=== PATIENT | male | born 1985 | race Caucasian/White ===

== ENCOUNTER 2016-11-06 10:35 | Inpatient (IN) | payer MEDICARE, OTHER ==
--- NOTE | 2016-11-06 10:43 | ER Document Report ---
[id number] Information source: Patient, Emergency Med Personnel TRAVEL OUTSIDE OF THE [place] IN LAST 30 DAYS: No - HPI Onset: Just prior to arrival Severity: Severe History of substance abuse: Yes - Paramedics initial findings Blood Pressure: 117/60 Heart Rate: 125 <MAIK PATEL - Last Filed: 11/08/16 11:03> - General Stated Complaint: POSSIBLE OVERDOSE Notes: Patient is a 31-year-old male that presents to the emergency department today secondary to a heroin overdose. EMS reports the patient's girlfriend called after she found him unresponsive on the couch. EMS reports girlfriend also found him unresponsive yesterday as well but he refused medical treatment yesterday. EMS reports on arrival today the patient was unresponsive with 6-8 snoring respirations a minute, with a room oxygen saturation of 55%. EMS reports the patient was diaphoretic and pale. EMS administered 2 mg of intranasal Narcan. Patient states he "snorted a little line heroin". Patient states he did not inject any heroin and he denies any other prescription pill usage. (MAIK PATEL) - Related Data Allergies/Adverse Reactions: No Known Allergies Allergy (Verified 11/06/16 11:52) Home Medications: Current Home Medications Oxcarbazepine [Trileptal] 600 mg PO Q12 11/06/16 [History] Propranolol HCl [Inderal 10 mg Tablet] 10 mg PO Q12 11/06/16 [History] Past Medical History - General Information source: Emergency Med Personnel, [facility] Records Cannot obtain history due to: Other - Social History Smoking Status: Never Smoker Cigarette use (# per day): No Drug Abuse: Heroin, Prescription drugs Lives with: Family Family History: Arthritis, CAD, CVA, DM, Hyperlipidemia, Hypertension, Malignancy - Past Medical History Cardiac Medical History: Reports: Hx Hypertension Neurological Medical History: Reports: Hx Migraine Musculoskeltal Medical History: Reports Hx Musculoskeletal Deformity, Reports Hx Musculoskeletal Trauma Psychiatric Medical History: Reports: Hx Anxiety, Hx Bipolar Disorder, Hx Depression, Hx Obsessive Compulsive Disorder, Hx Post Traumatic Stress Disorder Traumatic Medical History: Reports: Hx Traumatic Brain Injury Past Surgical History: Reports: Hx Tonsillectomy - Immunizations Immunizations up to date: Yes Hx Diphtheria, Pertussis, Tetanus Vaccination: Yes - 2011 <MAIK PATEL - Last Filed: 11/08/16 11:03> Review of Systems - Review of Systems -: Yes ROS unobtainable due to patient's medical condition - overdose <MAIK PATEL - Last Filed: 11/08/16 11:03> Physical Exam - Vital signs Interpretation: Hypoxic - General General appearance: Other - Arousable to painful stimuli - HEENT Head: Normocephalic, Atraumatic, Other - No signs of external trauma Eyes: Normal Conjunctiva: Normal Extraocular movements intact: Yes Mucous membranes: Moist - Respiratory Respiratory status: Other - hypoxic Chest status: Nontender Breath sounds: Normal - Cardiovascular Rhythm: Tachycardia Heart sounds: Normal auscultation Murmur: No - Abdominal Inspection: Normal Distension: No distension Bowel sounds: Normal Tenderness: Nontender - Extremities General upper extremity: Normal inspection, Nontender, Normal ROM. No: Edema General lower extremity: Normal inspection, Nontender, Normal ROM. No: Edema - Neurological Neuro grossly intact: Yes Cognition: Normal Orientation: AAOx4 - Skin Skin Temperature: Warm Skin Moisture: Dry Skin Color: Normal <MAIK PATEL - Last Filed: 11/08/16 11:03> - Vital signs Vitals: Resp 24 H 11/06/16 10:35 (CHANTELL PEÑALOZA) Course - Laboratory Result Diagrams: 11/06/16 10:40 11/06/16 10:40 <CHANTELL PEÑALOZA - Last Filed: 11/06/16 13:49> - Laboratory Result Diagrams: 11/07/16 04:21 11/06/16 10:40 <AMANDAMAIK - Last Filed: 11/08/16 11:03> - Re-evaluation Re-evalutation: 11/06/16 11:37 I personally performed the services described in the documentation, reviewed and edited the documentation which was dictated to my scribe in my presence, and it accurately records my words and actions. Patient presents to the emergency department with altered mental status. n patient's girlfriend called EMS because he was unresponsive at the house. There were apparently 5 children in the house as they do not have school today. She states that yesterday he had a period of unresponsiveness but after several hours he came to and denied taking anything. She states he has a history of substance abuse but to her knowledge it hasn't been recently. Patient was slow to respond but completely woke up to 2 mg of Narcan. In the emergency department he was alert to sternal rub would fall asleep but then when wake up easily to sternal rub. States that he just started this morning heroin 2 days ago. He denies any other drugs or alcohol. Denies any history of IV drug abuse. On examination he is put on a Narcan drip still sleepy and drowsy requiring oxygen for sats in the 89 percentile range. He should also placed on IVC as this is acute threatening overdose unknown whether this is suicidal ideation but warrants a psychiatric evaluation once he is no longer under the influence of the medications that he took. 11/06/16 13:48 Patient with elevated white blood cell count of 19,016 neutrophils not hypotensive afebrile rectal temp with no obvious sources of infection. We bumped him up on the Narcan drip because he was initially D satting he has not desatted any longer on the 0.4 mg an hour of Narcan. He is satting around 93-94 % with a negative chest x-ray aroused multiple times at the bedside follows commands awake alert no nuchal rigidity no neurological deficits. We will admit to the intensive care unit close monitoring and IVC paperwork. (CHANTELL PEÑALOZA) - Vital Signs Vital signs: Temp Pulse Resp BP Pulse Ox 97.9 F 75 17 129/73 H 93 11/07/16 09:08 11/07/16 09:08 11/07/16 09:08 11/07/16 09:08 11/07/16 09:08 (CHANTELL PEÑALOZA) - Laboratory Laboratory results interpreted by me: 11/06/16 11/06/16 11/06/16 10:40 10:40 10:55 WBC 19.1 H Seg Neutrophils % 86.9 H Lymphocytes % 5.2 L Absolute Neutrophils 16.6 H Absolute Eosinophils 0.7 H Glucose 258 H Urine Protein 100 H Urine Glucose (UA) >=500 H Salicylates < 1.0 L Acetaminophen < 10 L (CHANTELL PEÑALOZA) - EKG Interpretation by Me Additional EKG results interpreted by me: 11/06/16 11:39 EKG interpreted by myself to reveal sinus tachycardia at a rate of [address] segment elevation or depression 11/06/16 13:47 (CHANTELL PEÑALOZA) Critical Care Note - Critical Care Note Total time excluding time spent on procedures (mins): 45 <CHANTELL PEÑALOZA - Last Filed: 11/06/16 13:49> Discharge - Discharge Admitting Provider: Hospitalist Unit Admitted: ICU <CHANTELL PEÑALOZA - Last Filed: 11/06/16 13:49> <MAIK PATEL - Last Filed: 11/08/16 11:03> - Discharge Clinical Impression: Overdose Qualifiers: Encounter type: initial encounter Injury intent: undetermined intent Qualified Code(s): T50.904A - Poisoning by unspecified drugs, medicaments and biological substances, undetermined, initial encounter Condition: Stable Disposition: HOME, SELF-CARE Scribe Documentation - Scribe Written by Scribe:: Amanda Packer, 11/06/16 1143 acting as scribe for :: Vincent <MAIK PATEL - Last Filed: 11/08/16 11:03>
[2016-11-06] MEDS ORDERED: NORMAL SALINE 500 ML with NALOXONE HCL 2 MG IV PRN ×4 (10:50→14:26)
[2016-11-06 10:52] LABS: ABSOLUTE EOSINOPHILS # (AUTO) 0.7 10^3/uL (0.0-0.6); ABSOLUTE MONOCYTES (AUTO) 0.8 10^3/uL (0.1-1.4); ABSOLUTE NEUT (AUTO) 16.6 10^3/uL (1.7-8.2); BASOPHILS % (AUTO) 0.2 % (0-2); EOSINOPHILS % (AUTO) 3.6 % (0-6); HEMATOCRIT 46.9 % (37.9-51.0); HEMOGLOBIN 15.5 g/dL (13.5-17.0); HGB HCT DIFFERENCE -0.4; LYMPHOCYTES % (AUTO) 5.2 % (13-45); MEAN CORPUSCULAR HEMOGLOBIN 30.1 pg (27.0-33.4); MEAN CORPUSCULAR HGB CONC 33.2 g/dL (32.0-36.0); MEAN CORPUSCULAR VOLUME 91 fl (80-97); MONOCYTES % (AUTO) 4.1 % (3-13); RED BLOOD COUNT 5.17 10^6/uL (4.35-5.55); RED CELL DISTRIBUTION WIDTH 13.8 % (11.5-14.0); SEGMENTED NEUTROPHILS % (AUTO) 86.9 % (42-78); WHITE BLOOD COUNT 19.1 10^3/uL (4.0-10.5)
[2016-11-06] MEDS ORDERED: NALOXONE HCL INJ 2 MG/2 ML DISP.SYRIN ONE (11:04)
[2016-11-06 11:15] LABS: ANION GAP 14 (5-19); BLOOD UREA NITROGEN 19 mg/dL (7-20); CALCIUM 8.9 mg/dL (8.4-10.2); CARBON DIOXIDE 24 mmol/L (22-30); CHLORIDE 100 mmol/L (98-107); CREATININE RESULT 1.07 mg/dL (0.52-1.25); GLUCOSE 258 mg/dL (75-110); POTASSIUM 3.7 mmol/L (3.6-5.0)
[2016-11-06 11:16] LABS: ALCOHOL < 10 mg/dL (NONE DETECTED)
[2016-11-06 11:31] LABS: APPEARANCE,URINE SLIGHTLY-CLOUDY; BILIRUBIN,URINE NEGATIVE (NEGATIVE); GLUCOSE, URINE >=500 mg/dL (NEGATIVE); KETONES,URINE NEGATIVE (NEGATIVE); LEUKOCYTE ESTERASE,URINE NEGATIVE (NEGATIVE); NITRITE,URINE NEGATIVE (NEGATIVE); PROTEIN,URINE 100 mg/dL (NEGATIVE); URINE SPECIFIC GRAVITY 1.017; UROBILINOGEN,URINE NEGATIVE mg/dL (<2.0)
[2016-11-06] MEDS ORDERED: ONDANSETRON HCL INJ/PF 4 MG/2 ML SDV IV ONE (11:44)
--- NOTE | 2016-11-06 11:46 | EKG REPORT ---
SEVERITY:- BORDERLINE ECG - SINUS TACHYCARDIA BORDERLINE PROLONGED QT INTERVAL : Confirmed by: Isaura Mccarthy MD 06-Nov-2016 11:45:44
[2016-11-06 12:05] LABS: URINE BARBITURATES SCREEN NEGATIVE; URINE METHADONE SCREEN NEGATIVE; URINE PHENCYCLIDINE SCREEN NEGATIVE
[2016-11-06] MEDS ORDERED: MAGNESIUM HYDROXIDE SUSP 30 ML UDCUP PO PRN (14:15)
[2016-11-06] MEDS ORDERED: IPRATROPIUM/ALBUTEROL 0.5-2.5 MG/3 ML AMPUL NEB PRN (14:15)
[2016-11-06] MEDS ORDERED: ACETAMINOPHEN 325 MG TABLET PO PRN (14:15)
[2016-11-06] MEDS ORDERED: ONDANSETRON HCL INJ/PF 4 MG/2 ML SDV IV PRN (14:20)
[2016-11-06] MEDS ORDERED: KETOROLAC TROMETHAMINE INJ/PF 30 MG/1 ML SDV IV PRN (14:27)
--- NOTE | 2016-11-06 14:42 | PDOC H&P ---
History of Present Illness Patient complains of: unarousable History of Present Illness: MABEL HOWARD is a 31 year old male presents to the emergency department from home after his girlfriend could not wake him up for more than 24 hours. She knew he had taken something but didn't know what and elected to let him try "sleep it off" when she couldn't arouse him this morning she called emergency medical services. When they arrived they found him hypoxic with O2 sats below 88%, he was given a dose of Narcan and placed on a nasal cannula and transported to the emergency department. He responded to the Narcan briefly but then quickly drifted back to sleep and would drop his O2 sats again below 88 %. He was started on a Narcan drip with good results and now maintains saturations greater than 92% on 2 L per nasal cannula and the Narcan is running at 4 mg per hour. The patient freely admits to doing several lines of heroin starting yesterday and repeating again last night. Adamantly denies chronic use. States he has chronic low back pain and when he couldn't get any relief and couldn't find any narcotic pills on the street a dealer he encountered offered him the heroin. He adamantly denies any attempt to harm himself, no suicidal or homicidal ideations. States she's never done anything like this before and has never required hospitalization for an overdose before. He seems genuinely embarrassed by the outcome and at least somewhat reticent. On further evaluation emergency department chest x-ray seems to show a right middle lobe infiltrate, the patient does have cough nonproductive of phlegm, and a leukocytosis all suggestive of possible aspiration pneumonia. We were asked to admit the patient for further evaluation and management. A reflex IVC was started by the emergency department physician, she claims this is her normal MO anytime the patient presents in similar circumstances. ROS: A total 10 systems are reviewed with patient. Positives noted above remaining systems are negative. Past Medical History Cardiac Medical History: Reports: Hypertension Pulmonary Medical History: Denies: Asthma, Bronchitis, Pneumonia Neurological Medical History: Reports: Migraine Psychiatric Medical History: Reports: Bipolar Disorder, Depression, Post Traumatic Stress Disorder Traumatic Medical History: Reports: Traumatic Brain Injury Past Surgical History Past Surgical History: Reports: Tonsillectomy Social History Information Source: Patient Lives with: Family Smoking Status: Current Every Day Smoker Cigarettes Packs Per Day: 1 Frequency of Alcohol Use: None Hx Recreational Drug Use: Yes Drugs: Other - Prescription opiates Hx Prescription Drug Abuse: Yes - Advance Directive Resuscitation Status: Full Code Family History Family History: Arthritis, CAD, CVA, DM, Hyperlipidemia, Hypertension, Malignancy Parental Family History Reviewed: Yes Children Family History Reviewed: Yes Sibling(s) Family History Reviewed.: Yes Medication/Allergy Home Medications: Oxycodone HCl/Acetaminophen [Percocet 5-325 mg Tablet] 1 - 2 tab PO Q4H PRN #15 tablet 02/10/15 Allergies/Adverse Reactions: No Known Allergies Allergy (Verified 11/06/16 11:52) Review of Systems Constitutional: ABSENT: chills, fever(s), headache(s), weight gain, weight loss Eyes: ABSENT: visual disturbances Ears: ABSENT: hearing changes Cardiovascular: ABSENT: chest pain, dyspnea on exertion, edema, orthropnea, palpitations Respiratory: ABSENT: cough, hemoptysis Gastrointestinal: ABSENT: abdominal pain, constipation, diarrhea, hematemesis, hematochezia, nausea, vomiting Genitourinary: ABSENT: dysuria, hematuria Musculoskeletal: PRESENT: back pain. ABSENT: joint swelling Integumentary: ABSENT: rash, wounds Neurological: ABSENT: abnormal gait, abnormal speech, confusion, dizziness, focal weakness, syncope Psychiatric: ABSENT: anxiety, depression, homidical ideation, suicidal ideation Endocrine: ABSENT: cold intolerance, heat intolerance, polydipsia, polyuria Hematologic/Lymphatic: ABSENT: easy bleeding, easy bruising Physical Exam Vital Signs: Temp Pulse Resp BP Pulse Ox 98.1 F 19 104/75 92 11/06/16 10:40 11/06/16 14:01 11/06/16 14:01 11/06/16 14:01 Intake & Output 11/05/16 11/06/16 11/07/16 06:59 06:59 06:59 Weight 126.6 kg General appearance: PRESENT: no acute distress, obese, well-developed, well- nourished Head exam: PRESENT: atraumatic, normocephalic Eye exam: PRESENT: conjunctiva pink, EOMI, PERRLA. ABSENT: scleral icterus Mouth exam: PRESENT: moist, tongue midline Neck exam: ABSENT: carotid bruit, JVD, lymphadenopathy Respiratory exam: PRESENT: clear to auscultation susie. ABSENT: rales, rhonchi, wheezes Cardiovascular exam: PRESENT: RRR. ABSENT: diastolic murmur, rubs, systolic murmur Pulses: PRESENT: normal dorsalis pedis pul Vascular exam: PRESENT: normal capillary refill GI/Abdominal exam: PRESENT: normal bowel sounds, soft. ABSENT: distended, guarding, rebound, tenderness Rectal exam: PRESENT: deferred Extremities exam: PRESENT: full ROM. ABSENT: calf tenderness, clubbing, pedal edema Musculoskeletal exam: PRESENT: full ROM Neurological exam: PRESENT: alert, awake, oriented to person, oriented to place , oriented to time, oriented to situation Psychiatric exam: PRESENT: appropriate affect, normal mood. ABSENT: homicidal ideation, suicidal ideation Focused psych exam: ABSENT: psychomotor agitation Skin exam: PRESENT: dry, intact, warm. ABSENT: cyanosis, rash Results Laboratory Results: 11/06/16 10:40 11/06/16 10:40 11/06/16 11/06/16 11/06/16 10:40 10:40 10:55 WBC 19.1 H RBC 5.17 Hgb 15.5 Hct 46.9 MCV 91 MCH 30.1 MCHC 33.2 RDW 13.8 Plt Count 276 Seg Neutrophils % 86.9 H Lymphocytes % 5.2 L Monocytes % 4.1 Eosinophils % 3.6 Basophils % 0.2 Absolute Neutrophils 16.6 H Absolute Lymphocytes 1.0 Absolute Monocytes 0.8 Absolute Eosinophils 0.7 H Absolute Basophils 0.0 Sodium 138.0 Potassium 3.7 Chloride 100 Carbon Dioxide 24 Anion Gap 14 BUN 19 Creatinine 1.07 Est GFR ( Amer) > 60 Est GFR (Non-Af Amer) > 60 Glucose 258 H Calcium 8.9 Urine Color YELLOW Urine Appearance SLIGHTLY-CLOUDY Urine pH 5.0 Ur Specific [place] 1.017 Urine Protein 100 H Urine Glucose (UA) >=500 H Urine Ketones NEGATIVE Urine Blood NEGATIVE Urine Nitrite NEGATIVE Ur Leukocyte Esterase NEGATIVE Urine WBC (Auto) 6 Urine RBC (Auto) 1 Impressions: Chest X-Ray 11/06/16 10:45 IMPRESSION: NO ACUTE RADIOGRAPHIC FINDING IN THE CHEST. Assessment & Plan - Diagnosis (1) Heroin overdose Qualifiers: Encounter type: initial encounter Injury intent: accidental or unintentional Qualified Code(s): T40.1X1A - Poisoning by heroin, accidental (unintentional), initial encounter Is this a current diagnosis for this admission?: YesPlan: Admitted to the ICU and continue to titrate Narcan drip off as tolerated. (2) Tobacco dependence Is this a current diagnosis for this admission?: YesPlan: Not interested in cessation counseling at this time. Not interested in nicotine replacement at this time. (3) Aspiration pneumonia Qualifiers: Aspiration pneumonia type: unspecified Laterality: right Lung location: middle lobe of lung Qualified Code(s): J69.0 - Pneumonitis due to inhalation of food and vomit Is this a current diagnosis for this admission?: YesPlan: Start Unasyn and changed to Augmentin at discharge. Supplemental O2 as needed. Nebulizers as needed. - Time Time Spent: 50 to 70 Minutes Anticipated discharge: Home Within: within 48 hours - Inpatient Certification Based on my medical assessment, after consideration of the patient's comorbidities, presenting symptoms, or acuity I expect that the services needed warrant INPATIENT care.: Yes I certify that my determination is in accordance with my understanding of Medicare's requirements for reasonable and necessary INPATIENT services [42 CFR 412.3e].: Yes Medical Necessity: Need Close Monitoring Due to Risk of Patient Decompensation, Need For Continuous Telemetry Monitoring, Need for Nebulizer Therapy and Monitoring of Response
[2016-11-06] MEDS: RINGERS SOLUTION,LACTATED 1,000 ML IV PRN (15:12)
[2016-11-06] MEDS ORDERED: AMPICILLIN SODIUM/SULBACTAM NA 3 GM in NORMAL SALINE 100 ML IV ONE (16:00)
[2016-11-06] MEDS ORDERED: LANSOPRAZOLE 30 MG TAB.RAP.DR PO ONE (16:00)
[2016-11-06] MEDS ORDERED: INFLUENZA ADLT QUAD (36MOS+) 2016-17 VAC 0.5 ML SYR IM PRN (16:15)
[2016-11-06] MEDS: AMPICILLIN SODIUM/SULBACTAM NA 3 GM in NORMAL SALINE 100 ML IV SCH (21:32)
[2016-11-07] MEDS: RINGERS SOLUTION,LACTATED 1,000 ML IV PRN (01:56)
[2016-11-07] MEDS: AMPICILLIN SODIUM/SULBACTAM NA 3 GM in NORMAL SALINE 100 ML IV SCH (02:50)
[2016-11-07 04:51] LABS: ABSOLUTE BASOPHILS # (AUTO) 0.1 10^3/uL (0.0-0.2); ABSOLUTE EOSINOPHILS # (AUTO) 0.6 10^3/uL (0.0-0.6); ABSOLUTE LYMPHOCYTES (AUTO) 2.2 10^3/uL (0.5-4.7); ABSOLUTE MONOCYTES (AUTO) 0.9 10^3/uL (0.1-1.4); ABSOLUTE NEUT (AUTO) 4.9 10^3/uL (1.7-8.2); BASOPHILS % (AUTO) 0.6 % (0-2); EOSINOPHILS % (AUTO) 7.5 % (0-6); HEMATOCRIT 42.7 % (37.9-51.0); HEMOGLOBIN 14.3 g/dL (13.5-17.0); HGB HCT DIFFERENCE 0.2; LYMPHOCYTES % (AUTO) 25.2 % (13-45); MEAN CORPUSCULAR HEMOGLOBIN 30.4 pg (27.0-33.4); MEAN CORPUSCULAR HGB CONC 33.5 g/dL (32.0-36.0); MEAN CORPUSCULAR VOLUME 91 fl (80-97); MONOCYTES % (AUTO) 10.4 % (3-13); RED BLOOD COUNT 4.71 10^6/uL (4.35-5.55); SEGMENTED NEUTROPHILS % (AUTO) 56.3 % (42-78); WHITE BLOOD COUNT 8.7 10^3/uL (4.0-10.5)
[2016-11-07] MEDS ORDERED: LANSOPRAZOLE 30 MG TAB.RAP.DR PO SCH (06:00)
[2016-11-07] MEDS ORDERED: ENOXAPARIN SODIUM INJ 40 MG/0.4 ML DISP.SYRIN SUBCUT SCH (08:00)
--- NOTE | 2016-11-07 13:34 | PDOC DISCHARGE SUMMARY ---
General - Admit/Disc Date/PCP Admission Date/Primary Care Provider: 11/06/16 14:15 Discharge Date: 11/07/16 - Discharge Diagnosis (1) Heroin overdose Is this a current diagnosis for this admission?: YesSummary: Accidental, adamantly denies suicidal ideations or intent. He clearly states he was experimenting with the drug and had no intention of overdosing and seems regretful. Successfully weaned off the Narcan drip and remains alert oriented and oxygenating well. Stable for discharge (2) Tobacco dependence Is this a current diagnosis for this admission?: YesSummary: Not interested in cessation at this time (3) Aspiration pneumonia Is this a current diagnosis for this admission?: YesSummary: Continue ten-day course of Augmentin. Follow up with his primary care provider in 2 weeks. - Additional Information Resuscitation Status: Full Code Discharge Diet: As Tolerated Discharge Activity: Activity As Tolerated Home Medications: Oxcarbazepine [Trileptal] 600 mg PO Q12 11/06/16 Propranolol HCl [Inderal 10 mg Tablet] 10 mg PO Q12 11/06/16 Acetaminophen [Tylenol 325 mg Tablet] 650 mg PO Q4HP PRN tablet 11/07/16 Amox Tr/Potassium Clavulanate [Augmentin 875-125 mg Tablet] 1 tab PO BID #20 tablet 11/07/16 Flu Vacc [id number] Up/Pf [Fluzone Adlt Quad [id number] Vac 0.5 ml Syr] 0.5 ml IM .AT DISCHARGE PRN disp.syrin 11/07/16 History of Present Illness Patient complains of: obtunded History of Present Illness: MABEL HOWARD is a 31 year old male presents to the emergency department from home after his girlfriend could not wake him up for more than 24 hours. She knew he had taken something but didn't know what and elected to let him try "sleep it off" when she couldn't arouse him this morning she called emergency medical services. When they arrived they found him hypoxic with O2 sats below 88%, he was given a dose of Narcan and placed on a nasal cannula and transported to the emergency department. He responded to the Narcan briefly but then quickly drifted back to sleep and would drop his O2 sats again below 88 %. He was started on a Narcan drip with good results and now maintains saturations greater than 92% on 2 L per nasal cannula and the Narcan is running at 4 mg per hour. The patient freely admits to doing several lines of heroin starting yesterday and repeating again last night. Adamantly denies chronic use. States he has chronic low back pain and when he couldn't get any relief and couldn't find any narcotic pills on the street a dealer he encountered offered him the heroin. He adamantly denies any attempt to harm himself, no suicidal or homicidal ideations. States she's never done anything like this before and has never required hospitalization for an overdose before. He seems genuinely embarrassed by the outcome and at least somewhat reticent. On further evaluation emergency department chest x-ray seems to show a right middle lobe infiltrate, the patient does have cough nonproductive of phlegm, and a leukocytosis all suggestive of possible aspiration pneumonia. We were asked to admit the patient for further evaluation and management. A reflex IVC was started by the emergency department physician, she claims this is her normal MO anytime the patient presents in similar circumstances. ROS: A total 10 systems are reviewed with patient. Positives noted above remaining systems are negative. Hospital Course Hospital Course: MABEL HOWARD is a 31 year old male presents to the emergency department from home after his girlfriend could not wake him up for more than 24 hours. She knew he had taken something but didn't know what and elected to let him try "sleep it off" when she couldn't arouse him this morning she called emergency medical services. When they arrived they found him hypoxic with O2 sats below 88%, he was given a dose of Narcan and placed on a nasal cannula and transported to the emergency department. He responded to the Narcan briefly but then quickly drifted back to sleep and would drop his O2 sats again below 88 %. He was started on a Narcan drip with good results and now maintains saturations greater than 92% on 2 L per nasal cannula and the Narcan is running at 4 mg per hour. The patient freely admits to doing several lines of heroin starting yesterday and repeating again last night. Adamantly denies chronic use. States he has chronic low back pain and when he couldn't get any relief and couldn't find any narcotic pills on the street a dealer he encountered offered him the heroin. He adamantly denies any attempt to harm himself, no suicidal or homicidal ideations. States she's never done anything like this before and has never required hospitalization for an overdose before. He seems genuinely embarrassed by the outcome and at least somewhat reticent. On further evaluation emergency department chest x-ray seems to show a right middle lobe infiltrate, the patient does have cough nonproductive of phlegm, and a leukocytosis all suggestive of possible aspiration pneumonia. We were asked to admit the patient for further evaluation and management. A reflex IVC was started by the emergency department physician, she claims this is her normal MO anytime the patient presents in similar circumstances. Physical Exam Vital Signs: Temp Pulse Resp BP Pulse Ox 97.9 F 75 17 129/73 H 93 11/07/16 09:08 11/07/16 09:08 11/07/16 09:08 11/07/16 09:08 11/07/16 09:08 Intake & Output 11/06/16 11/07/16 11/08/16 06:59 06:59 06:59 Intake Total 1246 1150 Output Total 200 0 Balance 1046 1150 Weight 126.7 kg General appearance: PRESENT: no acute distress, well-developed, well-nourished Head exam: PRESENT: atraumatic, normocephalic Eye exam: PRESENT: conjunctiva pink, EOMI, PERRLA. ABSENT: scleral icterus Ear exam: PRESENT: normal external ear exam Mouth exam: PRESENT: moist, tongue midline Neck exam: ABSENT: carotid bruit, JVD, lymphadenopathy, thyromegaly Respiratory exam: PRESENT: crackles - Right base. ABSENT: rhonchi, wheezes Cardiovascular exam: PRESENT: RRR. ABSENT: diastolic murmur, rubs, systolic murmur Pulses: PRESENT: normal dorsalis pedis pul Vascular exam: PRESENT: normal capillary refill GI/Abdominal exam: PRESENT: normal bowel sounds, soft. ABSENT: distended, guarding, mass, organolmegaly, rebound, tenderness Rectal exam: PRESENT: deferred Extremities exam: PRESENT: full ROM. ABSENT: calf tenderness, clubbing, pedal edema Neurological exam: PRESENT: alert, awake, oriented to person, oriented to place , oriented to time, oriented to situation, CN II-XII grossly intact. ABSENT: motor sensory deficit Psychiatric exam: PRESENT: appropriate affect, normal mood. ABSENT: homicidal ideation, suicidal ideation Skin exam: PRESENT: dry, intact, warm. ABSENT: cyanosis, rash Results Laboratory Results: 11/07/16 04:21 11/07/16 04:21 WBC 8.7 RBC 4.71 Hgb 14.3 Hct 42.7 MCV 91 MCH 30.4 MCHC 33.5 RDW 14.0 Plt Count 258 Seg Neutrophils % 56.3 Lymphocytes % 25.2 Monocytes % 10.4 Eosinophils % 7.5 H Basophils % 0.6 Absolute Neutrophils 4.9 Absolute Lymphocytes 2.2 Absolute Monocytes 0.9 Absolute Eosinophils 0.6 Absolute Basophils 0.1 Impressions: Chest X-Ray 11/06/16 10:45 IMPRESSION: NO ACUTE RADIOGRAPHIC FINDING IN THE CHEST. Qualifiers PATEINT BEING DISCHARGED WITH ANY OF THE FOLLOWING DIAGNOSIS?: No Plan Discharge Plan: Home with oral antibiotics and follow-up with her care provider in 2 weeks. Counseled regarding polysubstance abuse. Time Spent: Greater than 30 Minutes
[2016-11-08 11:03] VITALS: BP 117/60
== END 2016-11-07 09:33 | disposition home or self-care (01) | DRG 917 ==
LOC: ER 10:35 → EH 14:15 → UNDOADMIN 14:44 → EH 16:08
PROVIDERS: ADMIT Internal Medicine; ATTEND Internal Medicine
PROC: 3E0F73Z Introduction of Anti-inflammatory into Respiratory Tract, Via Natural or Artificial Opening (ICD-10-PCS; principal; 2016-11-06)
DX: T40.1X1A Poisoning by heroin, accidental (unintentional), initial encounter (principal); J69.0 Pneumonitis due to inhalation of food and vomit; G89.29 Other chronic pain; M54.5 Low back pain; F17.210 Nicotine dependence, cigarettes, uncomplicated; I10 Essential (primary) hypertension; G43.909 Migraine, unspecified, not intractable, without status migrainosus; F31.9 Bipolar disorder, unspecified; F43.10 Post-traumatic stress disorder, unspecified; F42.9 Obsessive-compulsive disorder, unspecified; Z79.891 Long term (current) use of opiate analgesic; Z79.899 Other long term (current) drug therapy; Z87.820 Personal history of traumatic brain injury; Z82.61 Family history of arthritis; Z82.3 Family history of stroke; Z83.3 Family history of diabetes mellitus; Z80.9 Family history of malignant neoplasm, unspecified; Z82.49 Family history of ischemic heart disease and other diseases of the circulatory system
CPT/HCPCS: 36415; 71010; 80048; 80307; 81001; 85025; 87040; 93005; 93010; 94640; 96365; 96366; 96375; 99291; J0295; J2310; J2405; J3490; J7040; J7120; J7620

== ENCOUNTER 2017-04-15 00:55 | Emergency (ER) | payer MEDICARE, OTHER ==
--- NOTE | 2017-04-15 03:51 | RADIOLOGY REPORT (SQ) ---
EXAM DESCRIPTION: CHEST PA/LAT COMPLETED DATE/TIME: 04/15/2017 3:21 am REASON FOR STUDY: cough, hx of sarcoid COMPARISON: ..17 EXAM PARAMETERS: NUMBER OF VIEWS: two views TECHNIQUE: Digital Frontal and Lateral radiographic views of the chest acquired. RADIATION DOSE: NA LIMITATIONS: none FINDINGS: LUNGS AND PLEURA: M mild chronic interstitial markings. MEDIASTINUM AND HILAR STRUCTURES: No masses or contour abnormalities. HEART AND VASCULAR STRUCTURES: Heart normal size. No evidence for failure. BONES: No acute findings. HARDWARE: None in the chest. OTHER: No other significant finding. IMPRESSION: No acute cardiopulmonary findings. Mild chronic interstitial lung disease pattern. TECHNICAL DOCUMENTATION: JOB ID: [id number] [employer]- All Rights Reserved
--- NOTE | 2017-04-15 04:09 | ER Document Report ---
ED General - General Chief Complaint: Rash Stated Complaint: POSSIBLE RASH ON BACK Time Seen by Provider: 04/15/17 02:29 Mode of Arrival: Ambulatory Information source: Patient TRAVEL OUTSIDE OF THE [place] IN LAST 30 DAYS: No - HPI Notes: Patient presents with a 5 day history of a rash to the right back described as a burning rash with slight itching that is noticed. He thought there were vesicles on the rash initially, but now it has some scabs on the area. Patient also reports a cough for the last 2 weeks. He has a history of sarcoid , and he is requesting a chest x-ray. He denies any fever or chills. He reports no nausea or vomiting. he denies any chest pain. - Related Data Allergies/Adverse Reactions: No Known Allergies Allergy (Verified 11/06/16 11:52) Past Medical History - General Information source: Patient - Social History Smoking Status: Unknown if Ever Smoked Frequency of alcohol use: None Drug Abuse: None Lives with: Alone Family History: Arthritis, CAD, CVA, DM, Hyperlipidemia, Hypertension, Malignancy Patient has suicidal ideation: No Patient has homicidal ideation: No - Past Medical History Cardiac Medical History: Reports: Hx Hypertension Pulmonary Medical History: Denies: Hx Asthma, Hx Bronchitis, Hx Pneumonia Neurological Medical History: Reports: Hx Migraine Renal/ Medical History: Denies: Hx Peritoneal Dialysis Musculoskeltal Medical History: Reports Hx Musculoskeletal Deformity, Reports Hx Musculoskeletal Trauma Psychiatric Medical History: Reports: Hx Anxiety, Hx Bipolar Disorder, Hx Depression, Hx Obsessive Compulsive Disorder, Hx Post Traumatic Stress Disorder Traumatic Medical History: Reports: Hx Traumatic Brain Injury Past Surgical History: Reports: Hx Tonsillectomy - Immunizations Immunizations up to date: Yes Hx Diphtheria, Pertussis, Tetanus Vaccination: Yes - 2011 Review of Systems - Review of Systems Notes: REVIEW OF SYSTEMS: CONSTITUTIONAL : Denies fever, chills, or sweats. Denies recent illness. EENT: Denies eye, ear, throat, or mouth pain or symptoms. Denies nasal or sinus congestion or discharge. Denies throat, tongue, or mouth swelling or difficulty swallowing. CARDIOVASCULAR: Denies chest pain. Denies palpitations or racing or irregular heart beat. Denies ankle edema. RESPIRATORY: Denies shortness of breath, difficulty breathing, or wheezing. GASTROINTESTINAL: Denies abdominal pain or distention. Denies nausea, vomiting , or diarrhea. Denies blood in vomitus, stools, or per rectum. Denies black, tarry stools. Denies constipation. GENITOURINARY: Denies difficulty urinating, painful urination, burning, frequency, blood in urine, or discharge. MUSCULOSKELETAL: Denies back or neck pain or stiffness. Denies joint pain or swelling. SKIN: Denies poison epifanio exposure. HEMATOLOGIC : Denies easy bruising or bleeding. LYMPHATIC: Denies swollen, enlarged glands. NEUROLOGICAL: Denies confusion or altered mental status. Denies passing out or loss of consciousness. Denies dizziness or lightheadedness. Denies headache. Denies weakness or paralysis or loss of use of either side. Denies problems with gait or speech. Denies sensory loss, numbness, or tingling. Denies seizures. PSYCHIATRIC: Denies anxiety or stress. Denies depression, suicidal ideation, or homicidal ideation. ALL OTHER SYSTEMS REVIEWED AND NEGATIVE. Dictation was performed using [employer] voice recognition software Physical Exam - Vital signs Vitals: Temp Pulse Resp BP Pulse Ox 98.1 F 80 18 148/93 H 97 04/15/17 01:05 04/15/17 01:05 04/15/17 01:05 04/15/17 01:05 04/15/17 01:05 - Notes Notes: PHYSICAL EXAMINATION: GENERAL: Well-appearing, well-nourished and in no acute distress. HEAD: Atraumatic, normocephalic. EYES: Pupils equal round and reactive to light, extraocular movements intact, sclera anicteric, conjunctiva are normal. ENT: Nares patent, oropharynx clear without exudates. Moist mucous membranes. NECK: Normal range of motion, supple without lymphadenopathy LUNGS: Breath sounds clear to auscultation bilaterally and equal. No wheezes rales or rhonchi. HEART: Regular rate and rhythm without murmurs ABDOMEN: Soft, nontender, nondistended abdomen. No guarding, no rebound. No masses appreciated. Musculoskeletal: Normal range of motion, no pitting or edema. No cyanosis. NEUROLOGICAL: Cranial nerves grossly intact. Normal speech, normal gait. Normal sensory, motor exams PSYCH: Normal mood, normal affect. SKIN: Warm, Dry, normal turgor. Shingles rash noted in a T6 dermatome mainly in the back but slight radiation to the anterior chest. No evidence for cellulitis or gross abscess. Part of the shingles rash in the back is already scabbing over. Course - Re-evaluation Re-evalutation: 04/15/17 19:18 Patient was given Valtrex and will be started on Zithromax. He is counseled about the need to quit smoking. No significant evidence for pneumonia or acute change in the chest x-ray. No medical suggestion for systemic allergic response or significant worsening of sarcoid. - Vital Signs Vital signs: Temp Pulse Resp BP Pulse Ox 98.3 F 74 20 145/90 H 98 04/15/17 04:32 04/15/17 04:32 04/15/17 04:32 04/15/17 04:32 04/15/17 04:32 Discharge - Discharge Clinical Impression: Bronchitis Shingles Qualifiers: Herpes zoster complications: without complications Qualified Code(s): B02.9 - Zoster without complications Condition: Stable Disposition: HOME, SELF-CARE Instructions: Bronchitis ([facility]), Shingles ([facility]) Prescriptions: Tramadol HCl [Ultram] 50 mg PO Q4HP PRN #30 tablet PRN Reason: Tramadol HCl [Ultram 50 mg Tablet] 50 mg PO Q4HP PRN #30 tab PRN Reason: Azithromycin [Zithromax 250 mg Tablet] 250 mg PO DAILY #4 tablet Valacyclovir HCl [Valtrex] 1,000 mg PO TID #20 tablet
[2017-04-15] MEDS ORDERED: VALACYCLOVIR HCL 500 MG TABLET PO ONE (04:18)
[2017-04-15] MEDS ORDERED: AZITHROMYCIN 250 MG TABLET PO ONE (04:19)
[2017-04-15] MEDS ORDERED: HYDROCODONE/ACETAMINOPHEN 5-325 MG 6 TAB/DSPK PO PRN (04:19)
[2017-04-15 04:33] VITALS: BP 145/90
== END 2017-04-15 04:32 | disposition home or self-care (01) ==
LOC: ER 00:55
DX: J40 Bronchitis, not specified as acute or chronic (principal); B02.9 Zoster without complications; I10 Essential (primary) hypertension; Z87.820 Personal history of traumatic brain injury
CPT/HCPCS: 99283; 71020; A9270 ×3

== ENCOUNTER 2017-04-25 19:28 | Emergency (ER) | payer MEDICARE, OTHER ==
--- NOTE | 2017-04-25 19:48 | ER Document Report ---
ED Medical Screen (RME) - General Chief Complaint: Dizziness Stated Complaint: DIZZINESS,CONFUSION Time Seen by Provider: 04/25/17 19:44 Notes: Patient says he began to feel confused about 3 PM this afternoon. [place] the beach, but they had not been at the beach even an hour when her symptoms began. Earlier today, he felt fine and did not do anything unusual ,did not over exert himself and did not get overheated. He says he now feels like he is in a "dream" and his vision is "cloudy". On the way here in the car, the patient started having pain in the right posterior neck and also noted tingling in his left arm and tingling and weakness in his left leg. Says that in the mornings for the past few days he has felt somewhat dizzy and had difficulty standing. Has felt nauseated, but has not vomited. No urinary symptoms. Patient was seen here about a week or a week and a half diagnosed with shingles on the right shoulder blade area. He was put on some medicine which he has finished and is shingles have cleared up. Patient currently has no rashes. Has no fever. Patient suffers from hypertension and depression. TRAVEL OUTSIDE OF THE [place] IN LAST 30 DAYS: No - Related Data Allergies/Adverse Reactions: No Known Allergies Allergy (Verified 11/06/16 11:52) Past Medical History - Past Medical History Cardiac Medical History: Reports: Hx Hypertension Pulmonary Medical History: Denies: Hx Asthma, Hx Bronchitis, Hx Pneumonia Neurological Medical History: Reports: Hx Migraine Renal/ Medical History: Denies: Hx Peritoneal Dialysis Musculoskeltal Medical History: Reports Hx Musculoskeletal Deformity, Reports Hx Musculoskeletal Trauma Psychiatric Medical History: Reports: Hx Anxiety, Hx Bipolar Disorder, Hx Depression, Hx Obsessive Compulsive Disorder, Hx Post Traumatic Stress Disorder Traumatic Medical History: Reports: Hx Traumatic Brain Injury Past Surgical History: Reports: Hx Tonsillectomy - Immunizations Immunizations up to date: Yes Hx Diphtheria, Pertussis, Tetanus Vaccination: Yes - 2011 Physical Exam - Vital signs Vitals: Temp Pulse Resp BP Pulse Ox 97.5 F 98 18 160/101 H 96 04/25/17 19:34 04/25/17 19:34 04/25/17 19:34 04/25/17 19:34 04/25/17 19:34 Course - Vital Signs Vital signs: Temp Pulse Resp BP Pulse Ox 97.5 F 98 18 160/101 H 96 04/25/17 19:34 04/25/17 19:34 04/25/17 19:34 04/25/17 19:34 04/25/17 19:34
--- NOTE | 2017-04-25 20:27 | ER Document Report ---
ED General - General Chief Complaint: Dizziness Stated Complaint: DIZZINESS,CONFUSION Time Seen by Provider: 04/25/17 19:44 Notes: The patient is a 31-year-old male, past medical history bipolar, PTSD, OCD, presents after he was at the beach in the 96 degree weather and felt like his head was in the clouds. He has 5 kids and he cannot remember the name of 1 of them for a few minutes. He was on Valtrex last week for shingles, but denies any new medications. He also felt some tingling in his left arm that quickly resolved. He currently denies numbness, tingling, ataxia, blurry vision, fevers , neck stiffness, nausea, vomiting, abdominal pain, recent travel or headache. TRAVEL OUTSIDE OF THE [place] IN LAST 30 DAYS: No - Related Data Allergies/Adverse Reactions: No Known Allergies Allergy (Verified 11/06/16 11:52) Past Medical History - General Information source: Patient - Social History Smoking Status: Current Every Day Smoker Family History: Arthritis, CAD, CVA, DM, Hyperlipidemia, Hypertension, Malignancy Patient has suicidal ideation: No Patient has homicidal ideation: No - Past Medical History Cardiac Medical History: Reports: Hx Hypertension Pulmonary Medical History: Denies: Hx Asthma, Hx Bronchitis, Hx Pneumonia Neurological Medical History: Reports: Hx Migraine Renal/ Medical History: Denies: Hx Peritoneal Dialysis Musculoskeltal Medical History: Reports Hx Musculoskeletal Deformity, Reports Hx Musculoskeletal Trauma Psychiatric Medical History: Reports: Hx Anxiety, Hx Bipolar Disorder, Hx Depression, Hx Obsessive Compulsive Disorder, Hx Post Traumatic Stress Disorder Traumatic Medical History: Reports: Hx Traumatic Brain Injury Past Surgical History: Reports: Hx Tonsillectomy - Immunizations Immunizations up to date: Yes Hx Diphtheria, Pertussis, Tetanus Vaccination: Yes - 2011 Review of Systems - Review of Systems Notes: REVIEW OF SYSTEMS: CONSTITUTIONAL: -fevers, -chills EENT: -eye pain, -difficulty swallowing, -nasal congestion CARDIOVASCULAR:-chest pain, -syncope. RESPIRATORY: -cough, -SOB GASTROINTESTINAL: -abdominal pain, - nausea, -vomiting, -diarrhea GENITOURINARY: -dysuria, -hematuria MUSCULOSKELETAL: -back pain, -neck pain SKIN: -rash or skin lesions. HEMATOLOGIC: -easy bruising or bleeding. LYMPHATIC: -swollen, enlarged glands. NEUROLOGICAL: -altered mental status or loss of consciousness, -headache, +mild confusion PSYCHIATRIC: -anxiety, -depression. ALL OTHER SYSTEMS REVIEWED AND NEGATIVE. Physical Exam - Vital signs Vitals: Temp Pulse Resp BP Pulse Ox 97.5 F 98 18 160/101 H 96 04/25/17 19:34 04/25/17 19:34 04/25/17 19:34 04/25/17 19:34 04/25/17 19:34 - Notes Notes: PHYSICAL EXAMINATION: GENERAL: Well-appearing, well-nourished and in no acute distress. HEAD: Atraumatic, normocephalic. EYES: Pupils equal round and reactive to light, extraocular movements intact, sclera anicteric, conjunctiva are normal. ENT: nares patent, oropharynx clear without exudates. Moist mucous membranes. NECK: Normal range of motion, supple without lymphadenopathy LUNGS: Breath sounds clear to auscultation bilaterally and equal. No wheezes rales or rhonchi. HEART: Regular rate and rhythm without murmurs ABDOMEN: Soft, nontender, normoactive bowel sounds. No guarding, no rebound. No masses appreciated. EXTREMITIES: Normal range of motion, no pitting or edema. No cyanosis. NEUROLOGICAL: Cranial nerves grossly intact. Normal speech, normal gait. Normal sensory and motor exams. PSYCH: Normal mood, normal affect. SKIN: Warm, Dry, normal turgor, no rashes or lesions noted. Course - Re-evaluation Re-evalutation: Patient appears very well. He feels much better after drinking 2 large glasses of water. His labs are unremarkable, other than a slight leukocytosis. He does not have a fever or any source of infection. Patient has absolutely no neuro symptoms at this time. His NIH stroke scale would be 0 and his ABCD2 score would be 1. He is safe for outpatient follow-up for further evaluation and treatment. - Vital Signs Vital signs: Temp Pulse Resp BP Pulse Ox 97.5 F 98 18 160/101 H 96 04/25/17 19:34 04/25/17 20:00 04/25/17 20:00 04/25/17 20:00 04/25/17 20:00 - Laboratory Result Diagrams: 04/25/17 20:35 04/25/17 20:35 Laboratory results interpreted by me: 04/25/17 04/25/17 04/25/17 20:35 20:35 20:35 WBC 14.5 H Absolute Neutrophils 9.3 H Absolute Eosinophils 0.8 H Glucose 123 H Urine Ketones TRACE H Urine Urobilinogen 4.0 H - Diagnostic Test Radiology reviewed: Image reviewed, Reports reviewed Radiology results interpreted by me: Head CT: NAD Discharge - Discharge Clinical Impression: Confusion Condition: Stable Disposition: HOME, SELF-CARE Additional Instructions: Lightheadedness and other kinds of dizziness Feeling lightheaded is the feeling of being "spaced out" or having the sensation of spinning inside your head. It can also give you the sensation that if your lightheadedness worsens, you might lose consciousness. Causes may include: Inner ear disorders. These abnormalities of your inner ear can lead to illusions of motion and make you feel like you're floating. Anxiety disorders. Certain anxiety disorders, such as panic attacks and a fear of leaving home or being in large, open spaces (agoraphobia), may cause lightheadedness. Hyperventilation. Abnormally rapid breathing that often accompanies anxiety disorders may make you feel lightheaded. NORMAL EXAM AND WORKUP: At this time, your examination and workup show no significant abnormality. No significant abnormal physical findings were noted. All laboratory, EKG, and imaging (x-ray, CT scans, ultrasound) studies that were ordered show no significant abnormality. Although your examination and all studies that were ordered showed no significant abnormal finding, there are no examinations and no studies that are 100% accurate. There is always the possibility that some abnormality could exist and not be detected with physical examination or within the limits and capabilities of laboratory and other studies. You should return or follow up as you were instructed on your visit today for further evaluation if your symptoms do not resolve. FOLLOW-UP CARE: If you have been referred to a physician for follow-up care, call the physician s office for an appointment as you were instructed or within the next two days. If you experience worsening or a significant change in your symptoms, notify the physician immediately or return to the Emergency Department at any time for re-evaluation. Forms: Elevated Blood Pressure
--- NOTE | 2017-04-25 20:32 | RADIOLOGY REPORT (SQ) ---
EXAM DESCRIPTION: CT HEAD WITHOUT COMPLETED DATE/TIME: 04/25/2017 8:24 pm REASON FOR STUDY: Confused, dizzy, tingling left arm and leg COMPARISON: None. TECHNIQUE: Axial images acquired through the brain without intravenous contrast. Images reviewed wi th bone, brain and subdural windows. Images stored on PACS. All CT scanners at this facility use dose modulation, iterative reconstruction, and/or weight based d osing when appropriate to reduce radiation dose to as low as reasonably achievable (ALARA). [facility]: Dose Right [facility]: CareDose [facility]: Dose Right [facility]: Teradose 4D [facility]: Smart Supersonic RADIATION DOSE: Up-to-date CT equipment and radiation dose reduction techniques were employed. CTDIv ol: 64.6 mGy. DLP: 1034 mGy-cm. mGy. LIMITATIONS: None. FINDINGS: VENTRICLES: Normal size and contour. CEREBRUM: No masses. No hemorrhage. No midline shift. Normal berger/white matter differentiation. N o evidence for acute infarction. CEREBELLUM: No masses. No hemorrhage. No alteration of density. No evidence for acute infarction. EXTRAAXIAL SPACES: No fluid collections. No masses. ORBITS AND GLOBE: No intra- or extraconal masses. Normal contour of globe without masses. CALVARIUM: No fracture. PARANASAL SINUSES: No fluid or mucosal thickening. SOFT TISSUES: No mass or hematoma. OTHER: No other significant finding. IMPRESSION: NORMAL BRAIN CT WITHOUT CONTRAST. TECHNICAL DOCUMENTATION: JOB ID: [id number] Quality ID # [id number]: Final reports with documentation of one or more dose reduction techniques (e.g., Au tomated exposure control, adjustment of the mA and/or kV according to patient size, use of iterative reconstruction technique) 2010 [employer]- All Rights Reserved
[2017-04-25 20:50] LABS: ABSOLUTE BASOPHILS # (AUTO) 0.1 10^3/uL (0.0-0.2); ABSOLUTE EOSINOPHILS # (AUTO) 0.8 10^3/uL (0.0-0.6); ABSOLUTE LYMPHOCYTES (AUTO) 3.5 10^3/uL (0.5-4.7); ABSOLUTE MONOCYTES (AUTO) 0.7 10^3/uL (0.1-1.4); ABSOLUTE NEUT (AUTO) 9.3 10^3/uL (1.7-8.2); EOSINOPHILS % (AUTO) 5.7 % (0-6); HEMATOCRIT 46.2 % (37.9-51.0); HEMOGLOBIN 15.6 g/dL (13.5-17.0); HGB HCT DIFFERENCE 0.6; LYMPHOCYTES % (AUTO) 24.4 % (13-45); MEAN CORPUSCULAR HGB CONC 33.8 g/dL (32.0-36.0); MEAN CORPUSCULAR VOLUME 92 fl (80-97); MONOCYTES % (AUTO) 5.1 % (3-13); RED BLOOD COUNT 5.04 10^6/uL (4.35-5.55); RED CELL DISTRIBUTION WIDTH 13.7 % (11.5-14.0); SEGMENTED NEUTROPHILS % (AUTO) 63.8 % (42-78); WHITE BLOOD COUNT 14.5 10^3/uL (4.0-10.5)
[2017-04-25 20:57] LABS: APPEARANCE,URINE CLEAR; BILIRUBIN,URINE NEGATIVE (NEGATIVE); GLUCOSE, URINE NEGATIVE (NEGATIVE); KETONES,URINE TRACE mg/dL (NEGATIVE); LEUKOCYTE ESTERASE,URINE NEGATIVE (NEGATIVE); NITRITE,URINE NEGATIVE (NEGATIVE); PROTEIN,URINE NEGATIVE (NEGATIVE); URINE SPECIFIC GRAVITY 1.026
[2017-04-25 21:01] LABS: ALANINE AMINOTRANSFERASE 44 U/L (21-72); ALBUMIN 4.7 g/dL (3.5-5.0); ALKALINE PHOSPHATASE 87 U/L (38-126); ANION GAP 11 (5-19); ASPARTATE AMINO TRANSFERASE 28 U/L (17-59); BILIRUBIN,DIRECT 0.4 mg/dL (0.0-0.4); BILIRUBIN,TOTAL 0.6 mg/dL (0.2-1.3); BLOOD UREA NITROGEN 14 mg/dL (7-20); CALCIUM 9.5 mg/dL (8.4-10.2); CARBON DIOXIDE 25 mmol/L (22-30); CHLORIDE 105 mmol/L (98-107); CREATININE RESULT 0.95 mg/dL (0.52-1.25); GLUCOSE 123 mg/dL (75-110); POTASSIUM 4.2 mmol/L (3.6-5.0); SODIUM 141.4 mmol/L (137-145); TOTAL PROTEIN 8.2 g/dL (6.3-8.2)
[2017-04-25 21:16] LABS: CREATINE KINASE 74 U/L (55-170)
[2017-04-25 21:20] LABS: ALCOHOL < 10 mg/dL (NONE DETECTED)
[2017-04-25 21:26] LABS: URINE BARBITURATES SCREEN NEGATIVE; URINE METHADONE SCREEN NEGATIVE; URINE OPIATES LOW NEGATIVE; URINE PHENCYCLIDINE SCREEN NEGATIVE
[2017-04-25 22:23] VITALS: BP 152/68
== END 2017-04-25 22:00 | disposition home or self-care (01) ==
LOC: ER 19:28
DX: R42 Dizziness and giddiness (principal); F31.9 Bipolar disorder, unspecified; F42.9 Obsessive-compulsive disorder, unspecified; F17.200 Nicotine dependence, unspecified, uncomplicated; R41.0 Disorientation, unspecified
CPT/HCPCS: 36415; 70450; 80053; 80307; 81001; 82550; 85025; 99284

== ENCOUNTER 2018-11-13 16:38 | Emergency (ER) | payer MEDICARE, OTHER ==
--- NOTE | 2018-11-13 16:49 | ER Document Report ---
HPI - HPI Time Seen by Provider: 11/13/18 16:43 Pain Level: 4 Notes: Patient is a 33-year-old male with no significant past medical history presents the emergency department complaining of left ankle pain, swelling, bruising, and lower leg pain status post injury at a trampoline park yesterday. Patient states that he may have rolled his ankle, but had immediate pain when landing after jumping on a trampoline. Denies drug allergies. Patient is able to limp. No other concerns or complaints. Denies any headache, fever, head injury, neck pain, URI, sore throat, chest pain, palpitations, syncope, cough, shortness of breath, wheeze, dyspnea, abdominal pain, nausea/vomiting/diarrhea, urinary retention, dysuria, hematuria, loss of control of bowel or bladder, numbness/tingling, saddle anesthesia, muscle paralysis, or rash. - ROS Systems Reviewed and Negative: Yes All other systems reviewed and negative - REPRODUCTIVE Reproductive: DENIES: : Past Medical History - Social History Smoking Status: Current Every Day Smoker Family History: Arthritis, CAD, CVA, DM, Hyperlipidemia, Hypertension, Malignancy - Past Medical History Cardiac Medical History: Reports: Hx Hypertension Pulmonary Medical History: Denies: Hx Asthma, Hx Bronchitis, Hx Pneumonia Neurological Medical History: Reports: Hx Migraine Renal/ Medical History: Denies: Hx Peritoneal Dialysis Musculoskeletal Medical History: Reports Hx Musculoskeletal Deformity, Reports Hx Musculoskeletal Trauma Psychiatric Medical History: Reports: Hx Anxiety, Hx Bipolar Disorder, Hx Depression, Hx Obsessive Compulsive Disorder, Hx Post Traumatic Stress Disorder Traumatic Medical History: Reports: Hx Traumatic Brain Injury Past Surgical History: Reports: Hx Tonsillectomy - Immunizations Immunizations up to date: Yes Hx Diphtheria, Pertussis, Tetanus Vaccination: Yes - 2011 [facility] Provider Document - CONSTITUTIONAL Agree With Documented VS: Yes Notes: PHYSICAL EXAMINATION: GENERAL: Well-appearing, well-nourished and in no acute distress. LUNGS: Breath sounds clear to auscultation bilaterally and equal. No wheezes rales or rhonchi. HEART: Regular rate and rhythm without murmurs, rubs, gallops. Musculoskeletal: Lt foot/ankle: + significant swelling/ecchyosis noted to the ankle. + tenderness to the b/l malleoli and minimally to the lower leg. + mild tenderness to the fibula proximally. LROM to passive/active dorsiflexion. Strength 5+/5. N/V intact distal. Achilles intact. Extremities: No cyanosis, clubbing, or edema b/l. Peripheral pulses 2+. Capillary refill less than 3 seconds. NEUROLOGICAL: Normal speech, limping gait. Normal sensory, motor exams PSYCH: Normal mood, normal affect. SKIN: see above - INFECTION CONTROL TRAVEL OUTSIDE OF THE [place] IN LAST 30 DAYS: No Course - Re-evaluation Re-evalutation: 11/13/18 17:45 Patient is an afebrile, well-hydrated, 51-year-old female who presents to the ED with left ankle/leg pain which I suspect to be a sprain versus strain. Vitals are acceptable without any significant tachycardia, tachypnea, or hypoxia. PE is otherwise unremarkable for any neurovascular compromise, obvious tendon/ligament rupture, obvious fracture/dislocation, septic joint. X-ray was unremarkable for any acute pathology. Due to the significant swelling and ecchymosis, posterior leg/stirrup splint applied and crutches were provided today. Weight-bearing as tolerated after 2 days. Patient declined any Tylenol or ice. Patient is nontoxic-appearing. Patient is able to ambulate and weight- bear although he is limping. No other labs or imaging warranted at this time based on H&P. Conservative measures otherwise for symptoms. Recheck with your PCM in 3-5 days. Schedule a consult orthopedics. Return to the ED with any worsening/concerning symptoms otherwise as reviewed in discharge. Patient is in agreement. Procedures - Immobilization Left Ankle Time completed: 17:45 Pre-Proc Neuro Vasc Exam: Normal Immobilizer type: Short Leg Posterior - with stirrup splint Performed by: PCT Post-Proc Neuro Vasc Exam: Normal, Unchanged from pre-exam Discharge - Discharge Clinical Impression: Left ankle pain Qualifiers: Chronicity: acute Qualified Code(s): M25.572 - Pain in left ankle and joints of left foot Condition: Stable Disposition: HOME, SELF-CARE Instructions: Ice & Elevation ([facility]), Sprained Ankle ([facility]) Additional Instructions: Rest, Ice, Compression, Elevation Non-weight bearing for 2 days, then weight-bear as tolerated Use crutches/splint as directed for the first couple days, then ankle stirrup splint as needed Tylenol/ibuprofen as needed F/u with your PCP in 3-5 days for a recheck Call orthopedics to schedule an appointment for further evaluation and management Return to the ED with any worsening symptoms and/or development of fever, headache, chest pain, palpitations, syncope, shortness of breath, trouble breathing, abdominal pain, n/v/d, muscle weakness/paralysis, numbness/tingling, swelling, redness, or other worsening symptoms that are concerning to you. Forms: Elevated Blood Pressure, Smoking Cessation Education Referrals: [facility] [Primary Care Provider] - Follow up as needed [facility] [Provider Group] - Follow up as needed
--- NOTE | 2018-11-13 17:15 | RADIOLOGY REPORT (SQ) ---
EXAM DESCRIPTION: ANKLE LEFT COMPLETE COMPLETED DATE/TIME: 11/13/2018 5:08 pm REASON FOR STUDY: pain s/p injury COMPARISON: None. NUMBER OF VIEWS: Three views. TECHNIQUE: AP, lateral, and oblique radiographic images acquired of the left ankle. LIMITATIONS: None. FINDINGS: MINERALIZATION: Normal. BONES: No acute fracture or dislocation. No worrisome bone lesions. JOINTS: No effusions. SOFT TISSUES: No soft tissue swelling. No foreign body. OTHER: No other significant finding. IMPRESSION: NEGATIVE STUDY OF THE LEFT ANKLE. NO RADIOGRAPHIC EVIDENCE OF ACUTE INJURY. TECHNICAL DOCUMENTATION: JOB ID: [id number] [employer]- All Rights Reserved Reading location - IP/workstation name: [email or web address]
--- NOTE | 2018-11-13 17:15 | RADIOLOGY REPORT (SQ) ---
EXAM DESCRIPTION: TIBIA FIBULA LEFT COMPLETED DATE/TIME: 11/13/2018 5:08 pm REASON FOR STUDY: ankle pain, leg pain s/p injury COMPARISON: None. NUMBER OF VIEWS: Two views. TECHNIQUE: Two radiographic images acquired of the left tibia and fibula to include the knee and ank le in at least one projection. LIMITATIONS: None. FINDINGS: MINERALIZATION: Normal. BONES: No acute fracture or dislocation. No worrisome bone lesions. SOFT TISSUES: No obvious swelling or foreign body. OTHER: No other significant finding. IMPRESSION: NEGATIVE STUDY OF THE LEFT TIBIA AND FIBULA. NO RADIOGRAPHIC EVIDENCE OF ACUTE INJURY. TECHNICAL DOCUMENTATION: JOB ID: [id number] [facility]- All Rights Reserved Reading location - IP/workstation name: [email or web address]
== END 2018-11-13 17:45 | disposition home or self-care (01) ==
LOC: ER 16:38
DX: S90.02XA Contusion of left ankle, initial encounter (principal); M25.572 Pain in left ankle and joints of left foot; M25.472 Effusion, left ankle; X58.XXXA Exposure to other specified factors, initial encounter; F17.200 Nicotine dependence, unspecified, uncomplicated; I10 Essential (primary) hypertension
CPT/HCPCS: 99283

== ENCOUNTER → 2018-11-28 | Outpatient (CLI) | payer OTHER ==
--- NOTE | 2018-11-28 10:57 | RADIOLOGY REPORT (SQ) ---
EXAM DESCRIPTION: MRI LUMBAR SPINE WITHOUT COMPLETED DATE/TIME: 11/28/2018 10:24 am REASON FOR STUDY: LOW BACK PAIN M54.5 LOW BACK PAIN COMPARISON: None. TECHNIQUE: Sagittal and Axial imaging includes T1, T2, STIR and gradient echo sequences. Coronal T2/ HASTE imaging. LIMITATIONS: None. FINDINGS: VISUALIZED UPPER ABDOMEN: Limited evaluation. No acute or suspicious findings suggested. SEGMENTATION: No transitional anatomy. The lowest well-developed disc space is labeled L5-S1. ALIGNMENT: Anatomic. VERTEBRAE: Intact. BONE MARROW: Normal. No marrow replacement or reactive changes. DISC SIGNAL: There is loss of normal water signal throughout the lumbar spine. There is disc space n arrowing at L2-L3 and L3-L4. POSTERIOR ELEMENTS: Generally intact. No pars defect evident. HARDWARE: None in the spine. CORD AND CONUS: Normal in size and signal intensity. Conus at the appropriate level. SOFT TISSUES: No aortic aneurysm seen. No bulky retroperitoneal adenopathy or mass. No paraspinal mas s or fluid. L1-L2: No significant spinal stenosis or exit foraminal stenosis. L2-L3: Minimal annular bulging. No spinal stenosis or nerve root impingement. L3-L4: There is broad-based annular disc bulging. There is effacement anterior thecal sac. No high- grade central stenosis or foraminal narrowing. L4-L5: There is broad-based annular disc bulging. Mild effacement anterior thecal sac. No high-grad e central stenosis. Mild bilateral foraminal narrowing. L5-S1: No significant spinal stenosis or exit foraminal stenosis. LOWER THORACIC: Incompletely imaged. No stenosis seen. SACRUM: Visualized upper sacrum intact. OTHER: No other significant findings. IMPRESSION: Mild multilevel spondylosis. There is no high-grade central canal stenosis. Mild bilat eral foraminal narrowing at L4-L5. TECHNICAL DOCUMENTATION: JOB ID: [id number] [employer]- All Rights Reserved Reading location - IP/workstation name: [email or web address]
== END ==
LOC: RAD 09:13
PROVIDERS: ATTEND Family Medicine
DX: M54.5 Low back pain (principal)
CPT/HCPCS: 72148